=== PATIENT | female | born 1955 | race Caucasian/White ===

== ENCOUNTER 2016-12-06 07:36 | Day surgery (SDC) | payer OTHER ==
[2016-12-05 13:55] VITALS: BMI 27.8
[2016-12-06] MEDS ORDERED: PROPOFOL 20 ML ONE ×2 (08:23)
[2016-12-06] MEDS ORDERED: LIDOCAINE HCL/PF 2% SDV 5ML VIAL ONE (08:23)
[2016-12-06 09:28] VITALS: TEMP 97.7
[2016-12-06 09:45] VITALS: PULSE 56
[2016-12-06 10:56] VITALS: BP 125/86
--- NOTE | 2016-12-09 12:25 | PATH ---
Surgical Pathology Report Patient Name: JENIFFER GONSALVES [facility]. Rec. #: [id number] /Age/Gender: 1955 (Age: 61) / F Account: [id number] Location: U-ENDOSCOPY Taken: 12/06/2016 Received: 12/06/2016 Reported: 12/09/2016 Physicians: Florentin Williamson M.D. Specimen(s) Received A: BX 2ND PORTION OF DUODENUM/BULB B: BX ANTRUM C: BX GE JUNCTION/MID-ESOPHAGUS D: BX CECUM R/O COLLAGENOUS COLITIS E: BX ILEUM R/O MICROSCOPIC ILIETIS Clinical History Abdominal pain, screening colonoscopy Spasm/hiatal hernia, diverticulosis, internal hemorrhoids Final Diagnosis A. DUODENUM/BULB, SECOND PORTION, BIOPSY: SMALL BOWEL/DUODENAL MUCOSA WITHOUT SIGNIFICANT PATHOLOGIC CHANGE. B. STOMACH, ANTRUM, BIOPSY: GASTRIC ANTRAL MUCOSA WITH CHRONIC ACTIVE GASTRITIS, MODERATE ACTIVITY. IMMUNOHISTOCHEMICAL STAIN FOR H. PYLORI IS POSITIVE (MODERATE). C. GASTROESOPHAGEAL JUNCTION/MID ESOPHAGUS, BIOPSY: SQUAMOUS MUCOSA WITHOUT SIGNIFICANT PATHOLOGIC CHANGE. NO GLANDULAR COMPONENT IDENTIFIED. NO INTESTINAL METAPLASIA/LUJAN'S IDENTIFIED. D. CECUM, BIOPSY: COLONIC MUCOSA WITHOUT SIGNIFICANT PATHOLOGIC CHANGE. NO EVIDENCE OF COLLAGENOUS COLITIS. E. ILEUM, BIOPSY: SMALL BOWEL/ILEAL MUCOSA WITHOUT SIGNIFICANT PATHOLOGIC CHANGE. NO EVIDENCE OF MICROSCOPIC ILEITIS. Electronically Signed Chelsea Paz M.D. Gross Description A. Received in formalin, labeled "biopsy second portion of duodenum/bulb" are 3 vega, irregular portions of soft tissue ranging from 0.3-0.4 cm. in greatest dimension. The specimens are submitted in toto in one cassette. B. Received in formalin, labeled "biopsy antrum" are 4 vega, irregular portions of soft tissue ranging from 0.2-0.4 cm. in greatest dimension. The specimens are submitted in toto in one cassette. C. Received in formalin, labeled "biopsy GE junction/mid esophagus" are 3 vega, irregular portions of soft tissue ranging from 0.1-0.4 cm. in greatest dimension. The specimens are submitted in toto in one cassette. D. Received in formalin, labeled "biopsy cecum" are 2 vega, irregular portions of soft tissue measuring 0.2 and 0.5 cm. in greatest dimension. The specimens are submitted in toto in one cassette. E. Received in formalin, labeled "biopsy ileum" is a vega, irregular portion of soft tissue measuring 0.4 cm. in greatest dimension. The specimen is submitted in toto in one cassette. 12/06/201612/06/2016
== END 2016-12-06 10:30 | disposition home or self-care (01) ==
LOC: JASU-ENDO 07:36
PROVIDERS: ATTEND Internal Medicine Gastroenterology
PROC: 0DBN8ZX Excision of Sigmoid Colon, Via Natural or Artificial Opening Endoscopic, Diagnostic (ICD-10-PCS; 2016-12-06)
PROC: 0DB98ZX Excision of Duodenum, Via Natural or Artificial Opening Endoscopic, Diagnostic (ICD-10-PCS; 2016-12-06)
PROC: 0DB68ZX Excision of Stomach, Via Natural or Artificial Opening Endoscopic, Diagnostic (ICD-10-PCS; 2016-12-06)
PROC: 0DB28ZX Excision of Middle Esophagus, Via Natural or Artificial Opening Endoscopic, Diagnostic (ICD-10-PCS; 2016-12-06)
PROC: 0DB38ZX Excision of Lower Esophagus, Via Natural or Artificial Opening Endoscopic, Diagnostic (ICD-10-PCS; 2016-12-06)
PROC: 0DBB8ZX Excision of Ileum, Via Natural or Artificial Opening Endoscopic, Diagnostic (ICD-10-PCS; principal; 2016-12-06 08:30)
DX: Z51.11 Encounter for antineoplastic chemotherapy (principal); K57.30 Diverticulosis of large intestine without perforation or abscess without bleeding; K64.8 Other hemorrhoids; K21.9 Gastro-esophageal reflux disease without esophagitis; K44.9 Diaphragmatic hernia without obstruction or gangrene; R10.13 Epigastric pain
CPT/HCPCS: 88305-TC; 88342-TC